=== PATIENT | female | born 1990 | race Caucasian/White ===

== ENCOUNTER → 2017-03-12 | Emergency (ER) | payer OTHER ==
[~2017-03-12] VITALS: Ht 162.6 cm; Wt 49.9 kg
== END | disposition left against medical advice (07) ==
LOC: ER 22:04
DX: Z53.20 Procedure and treatment not carried out because of patient's decision for unspecified reasons (principal)

== ENCOUNTER 2020-05-18 15:41 | Emergency (ER) | payer OTHER ==
[~2020-05-18] VITALS: Ht 160 cm; Wt 61.2 kg
== END 2020-05-18 20:55 | disposition home or self-care (01) ==
LOC: ER 15:41
DX: T74.11XA Adult physical abuse, confirmed, initial encounter (principal); S00.83XA Contusion of other part of head, initial encounter; Y07.499 Other family member, perpetrator of maltreatment and neglect; Y04.2XXA Assault by strike against or bumped into by another person, initial encounter

== ENCOUNTER 2021-06-06 04:00 | Emergency (ER) | payer OTHER ==
[~2021-06-06] VITALS: Ht 160 cm; Wt 61.2 kg
[2021-06-06] MEDS ORDERED: NORFLEX100MG PO (05:30)
[2021-06-06] MEDS ORDERED: KETO10TA2 PO (05:30)
== END 2021-06-06 05:34 | disposition home or self-care (01) ==
LOC: ER 04:00
DX: S53.401A Unspecified sprain of right elbow, initial encounter (principal)

== ENCOUNTER 2023-01-14 22:17 | Emergency (ER) | payer OTHER ==
[~2023-01-14] VITALS: Ht 160 cm; Wt 65.8 kg
[~2023-01-14 22:17] MED LIST: ACETAMINOPHEN650 M2; KETO10TA2 PO; NORFLEX100MG PO
[2023-01-15 00:14] LABS: HEMATOCRIT 36.8 % (36.0-45.00); HEMOGLOBIN 12.4 g/dL (12.0-15.00); MEAN CELL VOLUME 84.6 fL (80.00-100.00); MEAN CORPUSCULAR HEMOGLOBIN 28.5 pg (27.00-32.0); MEAN CORPUSCULAR HGB CONC 33.7 g/dl (32.0-36.0); PLATELET COUNT 213 K/uL (150-450); RED BLOOD COUNT 4.34 M/uL (4.00-6.00); RED CELL DISTRIBUTION WIDTH 14.9 % (11.5-14.5)
[2023-01-15 00:37] LABS: INR 1.01; PARTIAL THROMBOPLASTIN TIME 27.3 SECONDS (22.0-34.0); PROTHROMBIN TIME 10.6 SECONDS (9.0-11.5)
[2023-01-15 00:38] LABS: CALCIUM 9.2 mg/dL (8.5-10.1); CREATININE SERUM 0.98 mg/dL (0.55-1.02); GFR 64.58; POTASSIUM 3.46 mEq/L (3.5-5.1)
[2023-01-15 04:11] LABS: URINE APPEARANCE Clear; URINE BILIRRUBIN Negative (NEGATIVE); URINE BLOOD Negative; URINE COLOR Yellow; URINE GLUCOSE Negative (NEGATIVE); URINE LEUKOCYTE Negative; URINE NITRATE Negative; URINE PROTEIN Negative (NEGATIVE); URINE UROBILINOGEN 0.2 E.U./dl
[2023-01-15 04:14] LABS: URINE EPITHELIAL CELLS 10.9 uL (0.0-38.8); URINE RBC 5.4 uL (0.0-20.8)
[2023-01-15 04:54] LABS: URINE WBC 1.6 uL (0.0-23.2)
== END 2023-01-15 05:06 | disposition home or self-care (01) ==
LOC: ER 22:17
PROVIDERS: General Practice
DX: N94.0 Mittelschmerz (principal)